=== PATIENT | female | born 1990 | race Caucasian/White ===

== ENCOUNTER 2021-09-22 15:41 | Observation (INO) ==
[2021-09-22] MEDS: POTASSIUM CHLORIDE 20 MEQ TABLET PO PRN ×3 (19:35→23:20)
[2021-09-22] MEDS: POTASSIUM CHLORIDE INJ 20 MEQ in LACTATED RINGERS 1,000 ML IV SCH (21:35)
[2021-09-22] MEDS ORDERED: ALUMINUM/MAGNES/SIMETH MAX STR 30 ML UDCUP PO PRN (21:42)
[2021-09-23] MEDS: POTASSIUM CHLORIDE 20 MEQ TABLET PO PRN ×8 (01:13→21:40)
[2021-09-23] MEDS: POTASSIUM CHLORIDE INJ 20 MEQ in LACTATED RINGERS 1,000 ML IV SCH (10:10)
[2021-09-23 20:23] LABS: Calcium 7.7 MG/DL (8.5-10.1); Osmolality,Calculated 279.3 MOS/KG (273-304); Potassium 2.9 MMOL/L (3.5-5.1)
[2021-09-23] MEDS ORDERED: MAGNESIUM SULF RIDER 2 GM/50 ML PREMIX IV PRN (21:37)
[2021-09-23] MEDS: CALCIUM CARBONATE CHEW 500 MG TABLET PO SCH (22:23)
[2021-09-24] MEDS: POTASSIUM CHLORIDE 20 MEQ TABLET PO PRN ×5 (00:03→14:50)
[2021-09-24] MEDS ORDERED: LEVOTHYROXINE 137 MCG TABLET PO SCH (08:00)
[2021-09-24] MEDS: CALCIUM CARBONATE CHEW 500 MG TABLET PO SCH (09:49)
[2021-09-24 15:23] VITALS: BP 116/69
== END 2021-09-24 19:15 | disposition home or self-care (01) ==
LOC: INTOOBSV 17:42 → N.OB 17:42
PROVIDERS: ADMIT Obstetrics & Gynecology; ATTEND Obstetrics & Gynecology

== ENCOUNTER 2021-12-08 17:04 | Inpatient (IN) ==
[2021-12-08] MEDS ORDERED: miSOPROStoL 200 MCG TABLET RECTAL PRN (20:06)
[2021-12-08] MEDS ORDERED: FAMOTIDINE 20 MG/2 ML VIAL IV ONE (20:06)
[2021-12-08] MEDS ORDERED: METHYLERGONOVINE 0.2 MG/1 ML AMP IM PRN (20:06)
[2021-12-08] MEDS ORDERED: OXYTOCIN/LR 20 UNIT/1,000 ML BAG IV ONE (20:06)
[2021-12-08] MEDS ORDERED: ceFAZolin 3,000 MG in SYRINGE 1 EACH IV ONE (20:06)
[2021-12-08] MEDS ORDERED: TRANEXAMIC ACID 1,000 MG in SODIUM CHLORIDE 0.9% 100 ML IV PRN (20:06)
[2021-12-08] MEDS ORDERED: CARBOPROST TROMETHAMINE 250 MCG/ML AMP IM PRN (20:06)
[2021-12-08] MEDS ORDERED: CITRIC ACID/SODIUM CITRATE 30 ML UDCUP PO ONE (20:06)
[2021-12-08] MEDS ORDERED: LACTATED RINGERS 1,000 ML IV SCH (20:30)
[2021-12-08 20:44] LABS: Basophils % 0.2 % (0.0-0.8); Eosinophils % 0.4 % (0.00-10.9); Hematocrit 39.2 VOL% (35.7-47.0); Hemoglobin 13.5 GM/DL (12.0-16.0); Immature Granulocytes % 0.4 %; Immature Granulocytes Absolute 0.05 #; Lymphocytes # 1.6 10*3/uL (1.4-4.0); Lymphocytes % 14.4 % (21.3-54.2); Mean Corpuscular HGB Conc 34.4 GM/DL (32-36); Mean Corpuscular Volume 86.9 FL (87-102); Mean Platelet Volume 10.2 FL (9.6-12.0); Monocytes # 0.6 10*3/uL (0.11-0.8); Monocytes % 5.1 % (1.7-12.7); Neutrophils % 79.5 % (38.7-73.9); Platelet Count 180 T/CUMM (130-400); Red Blood Count 4.51 MC/CUMM (3.8-5.5); Red Cell Distribution Width 14.4 % (9.3-17.3); White Blood Count 11.4 T/CUMM (4-12)
[2021-12-08 23:20] LABS: Albumin 2.5 G/DL (3.4-5.0); Bilirubin,Total 0.6 MG/DL (0.20-1.00); Calcium 9.3 MG/DL (8.5-10.1); Osmolality,Calculated 271.7 MOS/KG (273-304); Potassium 3.5 MMOL/L (3.5-5.1)
[2021-12-09] MEDS ORDERED: CITRIC ACID/SODIUM CITRATE 30 ML UDCUP ONE (06:05)
[2021-12-09] MEDS ORDERED: OXYTOCIN/LR 20 UNIT/1,000 ML BAG IV ONE ×4 (06:05→14:37)
[2021-12-09] MEDS ORDERED: FAMOTIDINE 20 MG/2 ML VIAL IV ONE (06:06)
[2021-12-09] MEDS: LEVOTHYROXINE 137 MCG TABLET PO SCH (06:10)
[2021-12-09] MEDS ORDERED: ceFAZolin 3,000 MG in SYRINGE 1 EACH IV ONE (06:27)
[2021-12-09] MEDS ORDERED: BUPIVACAINE SPINAL 0.75% 2 ML AMP SPINAL ONE (06:53)
[2021-12-09] MEDS ORDERED: buprenorphine HCL 0.3 MG/ML VIAL ONE (06:53)
[2021-12-09] MEDS ORDERED: KETOROLAC 30 MG/1 ML VIAL ONE (06:53)
[2021-12-09] MEDS ORDERED: ONDANSETRON 4 MG/2 ML VIAL ONE (06:53)
[2021-12-09] MEDS ORDERED: miSOPROStoL 200 MCG TABLET ONE (07:04)
[2021-12-09] MEDS ORDERED: TRANEXAMIC ACID 1,000 MG/10 ML VIAL ONE (07:04)
[2021-12-09] MEDS ORDERED: METHYLERGONOVINE 0.2 MG/1 ML AMP ONE (07:05)
[2021-12-09] MEDS ORDERED: CARBOPROST TROMETHAMINE 250 MCG/ML AMP IM ONE (07:05)
[2021-12-09] MEDS ORDERED: SODIUM CHLORIDE 0.9% 0 ML IV ONE (07:05)
[2021-12-09] MEDS ORDERED: GLYCOPYRROLATE 0.4 MG/2 ML VIAL ONE (07:26)
[2021-12-09] MEDS ORDERED: PHENYLEPHRINE 1 MG/10 ML SYRINGE IV ONE ×3 (07:26→08:13)
[2021-12-09] MEDS ORDERED: LACTATED RINGERS 1,000 ML IV ONE (07:45)
[2021-12-09] MEDS ORDERED: MAGNESIUM HYDROXIDE SUSP 30 ML UDCUP PO PRN (08:26)
[2021-12-09] MEDS ORDERED: ONDANSETRON 4 MG/2 ML VIAL IV PRN (08:26)
[2021-12-09] MEDS ORDERED: RHO(D) IMMUNE GLOBULIN 300 MCG SYRINGE IM ONE (08:26)
[2021-12-09] MEDS ORDERED: ACETAMINOPHEN 325 MG TABLET PO PRN (08:26)
[2021-12-09] MEDS ORDERED: LACTATED RINGERS 1,000 ML IV SCH (08:30)
[2021-12-09 08:31] LABS: Cord Arterial Blood HCO3 19.3 MMOL/L
[2021-12-09 08:33] LABS: Cord Venous Blood HCO3 21.8 MMOL/L; Cord Venous Blood PCO2 41.8 MMHG; Cord Venous Blood PO2 30.5
[2021-12-09 08:38] LABS: Glucose,Urine (UA) Negative (Negative); Mucus,Urine Occasional /LPF (Occasional); Protein,Urine Negative (Negative); RBC,Urine 2 /HPF (0-4); Squamous Epithelial Cell,Urine Occasional /HPF (0-10); Urine Appearance Clear (Clear); Urine Color Yellow (Yellow); Urine pH 6.5 (4.5-8.0)
[2021-12-09 08:39] LABS: Bilirubin,Urine Negative (Negative); Blood, Urine Small mg/dL (Negative); Ketones,Urine 40 mg/dL (Negative); Nitrite,Urine Negative (Negative); Urine Urobilinogen 0.2 eU/dL (<2.0)
[2021-12-09] MEDS ORDERED: HYDROmorphone 1 MG/1 ML SYRINGE IV PRN (08:44)
[2021-12-09] MEDS ORDERED: diphenhydrAMINE 50 MG/1 ML VIAL IV PRN (08:44)
[2021-12-09] MEDS ORDERED: hydrOXYzine HCL 25 MG/1 ML VIAL IM PRN (08:44)
[2021-12-09] MEDS ORDERED: ACETAMINOPHEN 500 MG TABLET PO PRN (08:44)
[2021-12-09] MEDS: IBUPROFEN 800 MG TABLET PO PRN (10:37)
[2021-12-09] MEDS: ACETAMINOPHEN 500 MG TABLET PO SCH ×2 (12:22→18:06)
[2021-12-09] MEDS: DOCUSATE SODIUM 100 MG CAPSULE PO SCH ×2 (12:24→22:19)
[2021-12-09] MEDS: MULTIVITAMIN (PRENATAL) TABLET PO SCH (12:24)
[2021-12-09] MEDS: KETOROLAC 30 MG/1 ML VIAL IV SCH ×2 (14:56→20:21)
[2021-12-09 15:34] LABS: Basophils % 0.4 % (0.0-0.8); Eosinophils % 0.4 % (0.00-10.9); Hematocrit 30.4 VOL% (35.7-47.0); Immature Granulocytes % 0.5 %; Immature Granulocytes Absolute 0.05 #; Lymphocytes # 1.6 10*3/uL (1.4-4.0); Lymphocytes % 14.1 % (21.3-54.2); Mean Corpuscular HGB Conc 34.2 GM/DL (32-36); Mean Corpuscular Volume 86.4 FL (87-102); Mean Platelet Volume 10.3 FL (9.6-12.0); Monocytes # 0.7 10*3/uL (0.11-0.8); Monocytes % 6.7 % (1.7-12.7); Neutrophils % 77.9 % (38.7-73.9); Platelet Count 149 T/CUMM (130-400); Red Blood Count 3.52 MC/CUMM (3.8-5.5); Red Cell Distribution Width 14.6 % (9.3-17.3)
[2021-12-09 15:50] LABS: Hemoglobin 10.4 GM/DL (12.0-16.0)
[2021-12-09] MEDS: ceFAZolin 2,000 MG in SODIUM CHLORIDE 0.9% 100 ML IV SCH (16:02)
[2021-12-09] MEDS: oxyCODONE/ACETAMINOPHEN 5-325 MG TABLET PO PRN (21:48)
[2021-12-10] MEDS: ceFAZolin 2,000 MG in SODIUM CHLORIDE 0.9% 100 ML IV SCH (00:03)
[2021-12-10] MEDS: KETOROLAC 30 MG/1 ML VIAL IV SCH (02:07)
[2021-12-10] MEDS: ACETAMINOPHEN 500 MG TABLET PO SCH ×2 (04:25→06:44)
[2021-12-10 05:38] LABS: Basophils % 0.3 % (0.0-0.8); Eosinophils # 0.1 10*3/uL (0.0-0.87); Eosinophils % 0.7 % (0.00-10.9); Hematocrit 27.7 VOL% (35.7-47.0); Hemoglobin 9.4 GM/DL (12.0-16.0); Immature Granulocytes % 0.5 %; Immature Granulocytes Absolute 0.05 #; Lymphocytes # 1.2 10*3/uL (1.4-4.0); Lymphocytes % 11.5 % (21.3-54.2); Mean Corpuscular HGB Conc 33.9 GM/DL (32-36); Mean Corpuscular Volume 87.9 FL (87-102); Mean Platelet Volume 10.2 FL (9.6-12.0); Monocytes # 0.6 10*3/uL (0.11-0.8); Monocytes % 6.3 % (1.7-12.7); Neutrophils % 80.7 % (38.7-73.9); Platelet Count 118 T/CUMM (130-400); Red Blood Count 3.15 MC/CUMM (3.8-5.5); Red Cell Distribution Width 14.6 % (9.3-17.3)
[2021-12-10] MEDS: LEVOTHYROXINE 137 MCG TABLET PO SCH (05:55)
[2021-12-10] MEDS: oxyCODONE/ACETAMINOPHEN 5-325 MG TABLET PO PRN ×4 (05:56→20:52)
[2021-12-10] MEDS: SIMETHICONE CHEW 80 MG TABLET PO PRN ×2 (06:42→15:49)
[2021-12-10] MEDS: MULTIVITAMIN (PRENATAL) TABLET PO SCH (08:31)
[2021-12-10] MEDS: DOCUSATE SODIUM 100 MG CAPSULE PO SCH ×2 (08:31→20:52)
[2021-12-10] MEDS: FERROUS SULFATE 325 MG TABLET PO SCH (08:32)
[2021-12-10] MEDS: IBUPROFEN 800 MG TABLET PO PRN ×2 (15:49→22:28)
[2021-12-10] MEDS ORDERED: MAGNESIUM CITRATE 300 ML BOTTLE PO ONE (20:36)
[2021-12-11] MEDS: oxyCODONE/ACETAMINOPHEN 5-325 MG TABLET PO PRN ×3 (01:15→09:28)
[2021-12-11] MEDS: IBUPROFEN 800 MG TABLET PO PRN ×2 (04:28→09:29)
[2021-12-11] MEDS: LEVOTHYROXINE 137 MCG TABLET PO SCH (05:25)
[2021-12-11 07:37] VITALS: BP 106/66
[2021-12-11] MEDS: FERROUS SULFATE 325 MG TABLET PO SCH (09:25)
[2021-12-11] MEDS: DOCUSATE SODIUM 100 MG CAPSULE PO SCH (09:25)
[2021-12-11] MEDS: MULTIVITAMIN (PRENATAL) TABLET PO SCH (09:25)
== END 2021-12-11 12:39 | disposition home or self-care (01) | DRG 539 ==
LOC: N.LDOUT 17:04 → N.LD 17:06 → N.OB 12-09 11:14
PROVIDERS: ADMIT Obstetrics & Gynecology; ATTEND Obstetrics & Gynecology